=== PATIENT | male | born 1980 | race African-American/Black ===

== ENCOUNTER 2019-09-24 08:21 | Emergency (ER) | payer OTHER ==
[~2019-09-24] VITALS: Ht 170.2 cm; Wt 59.6 kg
--- NOTE | 2019-09-24 08:54 | PHYS DOC ---
Past Medical History Past Medical History: Hypertension, Unknown Past Surgical History: Other Additional Past Surgical Histo: surgical scars to chest, abd, left shoulder- refuses to give info regarding Smoking Status: Unknown if ever smoked Alcohol Use: Heavy Social History Narrative: unknown General Adult EDM: Chief Complaint: ALCOHOL INTOXICATION HPI: HPI: Patient is a 39 year old male who was [place] the bus station by EMS because he was sleeping there. Patient appeared to be intoxicated. Patient denies any chest pain, no headache, no neck pain, no abdominal pain, no nausea vomiting. Patient denies suicidal ideation. Patient said he wanted to BE LEFT alone and wanted food. Review of Systems: Review of Systems: Constitutional: Denies fever or chills. [] Eyes: Denies change in visual acuity. [] HENT: Denies nasal congestion or sore throat. [] Respiratory: Denies cough or shortness of breath. [] Cardiovascular: Denies chest pain or edema. [] GI: Denies abdominal pain, nausea, vomiting, bloody stools or diarrhea. [] : Denies dysuria. [] Musculoskeletal: Denies back pain or joint pain. [] Integument: Denies rash. [] Neurologic: Denies headache, focal weakness or sensory changes. [] Endocrine: Denies polyuria or polydipsia. [] Lymphatic: Denies swollen glands. [] Psychiatric: Denies depression or anxiety. [] Heart Score: Risk Factors: Risk Factors: DM, Current or recent (<one month) smoker, HTN, HLP, family history of CAD, obesity. Risk Scores: Score 0 - 3: 2.5% MACE over next 6 weeks - Discharge Home Score 4 - 6: 20.3% MACE over next 6 weeks - Admit for Clinical Observation Score 7 - 10: 72.7% MACE over next 6 weeks - Early Invasive Strategies Allergies: Allergies: Allergies Coded Allergies Type Severity Reaction Last Updated Verified No Known Drug Allergies 09/24/19 No Physical Exam: PE: Constitutional: Well developed, well nourished, no acute distress, non-toxic appearance. [] HENT: Normocephalic, atraumatic, bilateral external ears normal, oropharynx moist, no oral exudates, nose normal. NO EVIDENCE OF INJURY NOTED. Eyes: PERRLA, EOMI, conjunctiva normal, no discharge. [] Neck: Normal range of motion, no tenderness, supple, no stridor. [] Cardiovascular:Heart rate regular rhythm, no murmur [] Lungs & Thorax: Bilateral breath sounds clear to auscultation [] Abdomen: Bowel sounds normal, soft, no tenderness, no masses, no pulsatile masses. [] Skin: Warm, dry, no erythema, no rash. [] Back: No tenderness, no CVA tenderness. [] Extremities: No tenderness, no cyanosis, no clubbing, ROM intact, no edema. [] Neurologic: Alert, awake, confused, normal motor function, normal sensory function, no focal deficits noted. [] Psychologic: Affect normal, judgement normal, mood normal. DENIED SUICIDAL IDEATION, DENIED HOMICIDAL IDEATION. Current Patient Data: Vital Signs: Vital Signs Date Time Temp Pulse Resp B/P (MAP) Pulse Ox O2 Delivery O2 Flow Rate FiO2 09/24/19 08:21 97.4 100 20 143/102 (116) 98 Room Air 97.4 EKG: EKG: [] Radiology/Procedures: Radiology/Procedures: [] Course & Med Decision Making: Course & Med Decision Making Pertinent Labs and Imaging studies reviewed. (See chart for details) Patient did not want any lab work done. Blowtorch Disclaimer: Blowtorch Disclaimer: This electronic medical record was generated, in whole or in part, using a voice recognition dictation system. Departure Departure Impression: Primary Impression: Alcohol abuse Disposition: 01 HOME, SELF-CARE Condition: STABLE Patient Instructions: Alcohol Problems BO WINTERS DO Sep 24, 2019 08:53
[2019-09-24 11:55] VITALS: BP 104/59
== END 2019-09-24 12:35 | disposition home or self-care (01) ==
LOC: ER 08:21
DX: F10.229 Alcohol dependence with intoxication, unspecified (principal); Y90.9 Presence of alcohol in blood, level not specified; I10 Essential (primary) hypertension
CPT/HCPCS: 99285-25

== ENCOUNTER 2019-11-23 17:16 | Emergency (ER) | payer OTHER ==
[~2019-11-23] VITALS: Ht 170.2 cm; Wt 63.6 kg
[2019-11-23 18:43] LABS: BILIRUBIN,URINE NEGATIVE (NEG); CLARITY,URINE CLEAR; COLOR,URINE YELLOW; NITRITE,URINE NEGATIVE (NEG); PH,URINE 5.5 (<5.0-8.0); PROTEIN,URINE NEGATIVE (NEG-TRACE); UROBILINOGEN,URINE 0.2 mg/dL (0.2 mg/dL)
[2019-11-23] MEDS ORDERED: MULTIVIT INFUSN,ADULT 4,VIT K 10 ML, THIAMINE INJ 100 MG, FOLIC ACID INJ 1 MG in IV NOR... IV ONE (18:45)
[2019-11-23 18:48] LABS: BASO % 1 % (0-3); EOS # 0.1 x10^3/uL (0.0-0.7); EOS % 1 % (0-3); HEMATOCRIT 42.3 % (39.0-53.0); HEMOGLOBIN 14.7 g/dL (13.0-17.5); LYMPH # 1.3 x10^3/uL (1.0-4.8); LYMPH % 29 % (24-48); MEAN CORPUSCULAR HEMOGLOBIN 33 pg (25-35); MEAN CORPUSCULAR HGB CONC 35 g/dL (31-37); MEAN CORPUSCULAR VOLUME 95 fL (79-100); MONO # 0.3 x10^3/uL (0.0-1.1); MONO % 7 % (0-9); NEUT # 2.8 x10^3/uL (1.8-7.7); NEUT % 63 % (31-73); PLATELET COUNT 243 x10^3/uL (140-400); RED BLOOD COUNT 4.47 x10^6/uL (4.30-5.70); RED CELL DISTRIBUTION WIDTH 14.7 % (11.5-14.5); WHITE BLOOD COUNT 4.4 x10^3/uL (4.0-11.0)
[2019-11-23 18:49] LABS: BACTERIA,URINE 0 /HPF (0-FEW); RBC,URINE 0 /HPF (0-2); SQUAMOUS EPITHELIAL CELL,UR FEW /LPF; WBC,URINE 0 /HPF (0-4)
[2019-11-23 18:57] LABS: BARBITURATES NEG (NEG); BENZODIAZEPINES NEG (NEG); CANNABINOIDS NEG (NEG); COCAINE NEG (NEG); METHADONE NEG (NEG); OPIATES NEG (NEG); PHENCYCLIDINE POS (NEG)
[2019-11-23 18:58] LABS: PROTHROMBIN TIME PATIENT 12.2 SEC (11.7-14.0)
[2019-11-23 19:00] LABS: AMPHETAMINE/METHAMPHETAMINE NEG (NEG)
[2019-11-23 19:00] LABS: CALCIUM 8.4 mg/dL (8.5-10.1); CREATININE 0.7 mg/dL (0.7-1.3); GFR 151.1; POTASSIUM 3.6 mmol/L (3.5-5.1)
--- NOTE | 2019-11-23 19:00 | PHYS DOC ---
Past Medical History Past Medical History: Alcoholism, Hypertension, Unknown, Other Past Medical History Limited secondary to intoxication Past Surgical History: Other Additional Past Surgical Histo: surgical scars to chest, abd, left shoulder- refuses to give info regarding Past Surgical History Limited secondary to intoxication Smoking Status: Current Every Day Smoker Additional Information: 1+ PPD Alcohol Use: Heavy Additional Information: DRINKS DAILY, PATIENT STATES, "ANYTHING THAT THEY GIVE ME." Social History Narrative: PT STATES, "I AM JUST GOING TO LEAVE THAT ALONE." Social History Limited secondary to intoxication General Adult EDM: Chief Complaint: ALCOHOL INTOXICATION HPI: HPI: Patient is a 39 year old male presents via EMS with report of being found at gas station at [facility] and [facility] sitting on the curb intoxicated. Patient does report alcohol abuse. Patient denies any complaint. Reports reports drinks daily and drinks "anything they give me." Patient does report he would like help with his ETOH abuse. History of present illness limited secondary to intoxication. Review of Systems: Review of Systems: Review of systems limited secondary to intoxication Current Medications: Current Medications Medications (Trade) Dose Ordered Sig/Suly Start Time Stop Time Status Last Admin Dose Admin Multivitamins 10 ml/Thiamine HCl 100 mg/Folic Acid 1 mg/Sodium Chloride 1,011.2 ml @ 1,000 mls/ hr 1X ONCE 11/23/19 18:45 11/23/19 19:45 Allergies: Allergies: Allergies Coded Allergies Type Severity Reaction Last Updated Verified No Known Drug Allergies 09/24/19 No Physical Exam: PE: Constitutional: Well developed, well nourished, inebriated HENT: Normocephalic, atraumatic, right forehead soft mass noted (reports has had this swelling for years) Eyes: PERRL, EOMI, conjunctiva injected, no discharge, horizontal nystagmus noted Neck: Normal range of motion, no tenderness, supple Lungs & Thorax: No respiratory distress, equal chest rise and fall Abdomen: Soft, no tenderness Skin: Warm, dry, no erythema, no rash Extremities: No tenderness, ROM intact, no edema Neurologic: Alert but inebriated, follows commands, normal motor function, normal sensory function, no focal deficits noted Psychologic: Affect somnolent, judgment abnormal, reports wanting help with his ETOH abuse, denies suicidality Current Patient Data: Labs: Laboratory Tests Test 11/23/19 18:35 11/23/19 18:42 Urine Collection Type Unknown Urine Color Yellow Urine Clarity Clear Urine pH 5.5 (<5.0-8.0) Urine Specific [place] <=1.005 (1.000-1.030) Urine Protein Negative mg/dL (NEG-TRACE) Urine Glucose (UA) Negative mg/dL (NEG) Urine Ketones (Stick) Negative mg/dL (NEG) Urine Blood Negative (NEG) Urine Nitrite Negative (NEG) Urine Bilirubin Negative (NEG) Urine Urobilinogen Dipstick 0.2 mg/dL (0.2 mg/dL) Urine Leukocyte Esterase Negative (NEG) Urine RBC 0 /HPF (0-2) Urine WBC 0 /HPF (0-4) Urine Squamous Epithelial Cells Few /LPF Urine Bacteria 0 /HPF (0-FEW) White Blood Count 4.4 x10^3/uL (4.0-11.0) Red Blood Count 4.47 x10^6/uL (4.30-5.70) Hemoglobin 14.7 g/dL (13.0-17.5) Hematocrit 42.3 % (39.0-53.0) Mean Corpuscular Volume 95 fL (79-100) Mean Corpuscular Hemoglobin 33 pg (25-35) Mean Corpuscular Hemoglobin Concent 35 g/dL (31-37) Red Cell Distribution Width 14.7 % (11.5-14.5) H Platelet Count 243 x10^3/uL (140-400) Neutrophils (%) (Auto) 63 % (31-73) Lymphocytes (%) (Auto) 29 % (24-48) Monocytes (%) (Auto) 7 % (0-9) Eosinophils (%) (Auto) 1 % (0-3) Basophils (%) (Auto) 1 % (0-3) Neutrophils # (Auto) 2.8 x10^3/uL (1.8-7.7) Lymphocytes # (Auto) 1.3 x10^3/uL (1.0-4.8) Monocytes # (Auto) 0.3 x10^3/uL (0.0-1.1) Eosinophils # (Auto) 0.1 x10^3/uL (0.0-0.7) Basophils # (Auto) 0.0 x10^3/uL (0.0-0.2) Laboratory Tests 11/23/19 18:42 Vital Signs: Vital Signs Date Time Temp Pulse Resp B/P (MAP) Pulse Ox O2 Delivery O2 Flow Rate FiO2 11/23/19 17:16 98.4 102 20 113/68 (83) 96 Room Air 98.4 EKG: EKG: [] Radiology/Procedures: Radiology/Procedures: [] Course & Med Decision Making: Course & Med Decision Making Pertinent Lab studies reviewed. (See chart for details) Patient presents via EMS with acute intoxication. Patient reports he drinks daily. Patient inebriated upon arrival. Patient also very somnolent and sleepy. Patient does follow commands. Patient does report wish for help with alcohol abuse. Denies suicidality. Labs obtained and posted to chart. UDS positive for ETOH and PCP. ETOH 365. Banana bag provided. Patient allowed to sober in department. PAT consult placed. Arianna (BANDAR) evaluated patient with recommendation who offered sobering unit and further assessment at [place]. Patient reports he has a job on the weekend and wants to fulfill his obligation tomorrow and Tuesday. Reports he will follow up at [facility] on Tuesday. Patent given mental health/detox information from Arianna. Patient stable for discharge with outpatient follow-up with PCP/mental health/detox. Discussed findings and plan with patient, who acknowledges understanding and agreement. David Disclaimer: David Disclaimer: This electronic medical record was generated, in whole or in part, using a voice recognition dictation system. Departure Departure Impression: Primary Impression: Alcohol abuse Additional Impression: PCP (phencyclidine) abuse Disposition: 01 HOME, SELF-CARE Condition: STABLE Patient Instructions: Alcohol and Drug Addiction, Finding Treatment, Chronic Alcoholism, How Much is Too Much Alcohol, [id number] Justicifation of Admission Dx: Justifications for Admission: Justification of Admission Dx: N/A JESSE SCHMITT DO Nov 23, 2019 19:00
[2019-11-23 19:05] LABS: ALBUMIN 4.2 g/dL (3.4-5.0); ALBUMIN/GLOBULIN RATIO 1.1 (1.0-1.7); MAGNESIUM 2.4 mg/dL (1.8-2.4); TOTAL BILIRUBIN 0.2 mg/dL (0.2-1.0); TOTAL PROTEIN 8.1 g/dL (6.4-8.2)
[2019-11-23 19:18] LABS: SALIC 4.6 mg/dL (2.8-20.0)
[2019-11-23 19:19] LABS: ACETAMIN < 2 mcg/ml (10-30); ETHANOL 365 mg/dL (0-10)
[2019-11-23 19:48] VITALS: BP 131/70
== END 2019-11-23 20:16 | disposition home or self-care (01) ==
LOC: ER 17:16
DX: F10.229 Alcohol dependence with intoxication, unspecified (principal); F10.239 Alcohol dependence with withdrawal, unspecified; F16.10 Hallucinogen abuse, uncomplicated; Y90.8 Blood alcohol level of 240 mg/100 ml or more; I10 Essential (primary) hypertension; F17.200 Nicotine dependence, unspecified, uncomplicated; Z98.890 Other specified postprocedural states
CPT/HCPCS: 36415; 80053; 80307; 80329; 81001; 83735; 85025; 85610; 85730; 96365; 99284; G0480; J3411; J3490; J7030

== ENCOUNTER 2020-02-20 19:09 | Emergency (ER) | payer OTHER ==
[~2020-02-20] VITALS: Ht 172.7 cm; Wt 72.0 kg
[2020-02-20] MEDS ORDERED: TETANUS AND DIPHTHERIA TOX/PF 0.5 ML DISP.SYRIN. VAX IM ONE (19:15)
[2020-02-20] MEDS ORDERED: LIDOCAINE 1%/EPI 1:100,000 20 ML VIAL. INJ ONE (19:15)
--- NOTE | 2020-02-20 19:18 | PHYS DOC ---
Past Medical History Past Medical History: Alcoholism, Hypertension, Unknown, Other Past Surgical History: Other Additional Past Surgical Histo: surgical scars to chest, abd, left shoulder- refuses to give info regarding Smoking Status: Current Every Day Smoker Alcohol Use: Heavy General Adult EDM: Chief Complaint: ALCOHOL INTOXICATION HPI: HPI: Patient is a 40 year old found intoxicated on the ground. History physical review of systems limited due to alcohol intoxication patient states he got drunk and fell and injured his head today. Patient unable to qualify the severity of pain or any other details surrounding the event. Review of Systems: Review of Systems: Constitutional: Denies fever or chills. [] Eyes: Denies change in visual acuity. [] HENT: Denies nasal congestion or sore throat. [] Respiratory: Denies cough or shortness of breath. [] Cardiovascular: Denies chest pain or edema. [] GI: Denies abdominal pain, nausea, vomiting, bloody stools or diarrhea. [] : Denies dysuria. [] Musculoskeletal: Denies back pain or joint pain. [] Integument: Denies rash. [] Neurologic: Complains of headache but no focal weakness or sensory changes. [] Endocrine: Denies polyuria or polydipsia. [] Lymphatic: Denies swollen glands. [] Psychiatric: Denies depression or anxiety. [] Heart Score: Risk Factors: Risk Factors: DM, Current or recent (<one month) smoker, HTN, HLP, family history of CAD, obesity. Risk Scores: Score 0 - 3: 2.5% MACE over next 6 weeks - Discharge Home Score 4 - 6: 20.3% MACE over next 6 weeks - Admit for Clinical Observation Score 7 - 10: 72.7% MACE over next 6 weeks - Early Invasive Strategies Allergies: Allergies: Allergies Coded Allergies Type Severity Reaction Last Updated Verified No Known Drug Allergies 09/24/19 No Physical Exam: PE: Constitutional: Disheveled, intoxicated HENT: Multiple scattered abrasions, no malocclusion no obvious oral trauma there is a 1.5 cm laceration to the right eyebrow laterally, tympanic membrane is clear, no septal hematoma, scattered contusions Eyes: PERRLA, EOMI, 1.5 cm laceration to the right lateral eyebrow Neck: Normal range of motion, no tenderness, supple, no stridor. [] Cardiovascular:Heart rate regular rhythm, peripheral pulse intact, cap refill brisk Lungs & Thorax: Bilateral breath sounds clear no respiratory distress Abdomen: Abdomen soft nontender Skin: 1.5 cm laceration to the right lateral eyebrow Back: No tenderness, no CVA tenderness. [] Extremities: No tenderness, no cyanosis, no clubbing, ROM intact, no edema. [] Neurologic: Intoxicated mildly confused, normal motor function, normal sensory function, no focal deficits noted. [] Psychologic: Not depressed Current Patient Data: Vital Signs: Vital Signs Date Time Temp Pulse Resp B/P (MAP) Pulse Ox O2 Delivery O2 Flow Rate FiO2 02/20/20 19:14 99.4 107 16 139/71 (93) 97 Room Air 99.4 EKG: EKG: [] Radiology/Procedures: Radiology/Procedures: [][facility] [address] [place] [address] IMAGING REPORT Signed PATIENT: CHARLIE MCCOLLUM ACCOUNT: [id number] : 1980 LOCATION: ER AGE: 40 SEX: M EXAM STATUS: REG ER ORD. PHYSICIAN: MIHIR SANTANA MD REASON: TRAUMA PROCEDURE: CT HEAD AND MAXILLOFACIAL WO CT CERVICAL SPINE WO CONTRAST, CT HEAD AND MAXILLOFACIAL WO History: Reason: TRAUMA / Spl. Instructions: / History: . Pain Comparison: None. Technique: Noncontrast CT imaging was performed of the head, maxillofacial and cervical spine. Coronal and sagittal reconstructions were performed. Exposure: One or more of the following individualized dose reduction techniques were utilized for this examination: 1. Automated exposure control 2. Adjustment of the mA and/or kV according to patient size 3. Use of iterative reconstruction technique. Findings: Head CT: No intracranial hemorrhage. No mass effect. No hydrocephalus. Extra-axial spaces are unremarkable. Right anterior scalp lipoma. Mild left anterior scalp soft tissue swelling. Maxillofacial CT: No acute maxillofacial fracture. Left facial soft tissue swelling. Orbits are unremarkable. Paranasal sinuses and mastoid air cells are clear. No acute calvarial fracture. Cervical spine CT: Normal vertebral body height. Normal alignment. No fracture. Mild multilevel degenerative disc changes. No high-grade canal or neuroforaminal narrowing. Soft tissues are unremarkable. Impression: Head CT: 1. No acute intracranial abnormality. 2. Mild left anterior scalp soft tissue swelling. Maxillofacial CT: 1. No acute maxillofacial fracture. 2. Mild left facial soft tissue swelling. Cervical spine CT: 1. No acute fracture or subluxation of the cervical spine. Electronically signed by: Jeremy Santillan DO (02/20/2020 9:18 PM) [facility] DICTATED and SIGNED BY: JEREMY SANTILLAN DO DATE: 02/20/202117 Course & Med Decision Making: Course & Med Decision Making Pertinent Labs and Imaging studies reviewed. (See chart for details) [] 40-year-old male presents with alcohol intoxication and a fall and head injury. Due to his alcohol intoxication a CT was done of the head neck and face which are negative for acute pathology. Laceration repaired by nurse practitioner. No complications. Patient has a ride back to where he is staying. Patient eating and no respiratory distress in ER. Dragon Disclaimer: Dragon Disclaimer: This electronic medical record was generated, in whole or in part, using a voice recognition dictation system. Departure Departure Impression: Primary Impression: Facial laceration Additional Impressions: Head injury Alcohol intoxication Disposition: 01 HOME, SELF-CARE Condition: STABLE Referrals: NO PCP (PCP) PCP Patient Instructions: Alcohol Intoxication, Facial Laceration, Head Injury, Adult Additional Instructions: EMERGENCY DEPARTMENT GENERAL DISCHARGE INSTRUCTIONS THANK YOU for coming to [facility] Emergency Department (ED) today and trusting us with your care. We trust that you had a positive experience in our Emergency Department. If you wish to speak to the department Management you can contact [facility] supervisor sewing department at . YOUR FOLLOW UP INSTRUCTIONS ARE FOLLOWS: Do you have a private doctor? If you do not have a private doctor, please ask for a resource list of physicians or clinics that may be able to assist you with follow up care. The Emergency Physician has interpreted your x-rays. The X-ray specialist will also review them. If there is a change in the findings you will be notified in 48 hours when at all possible. A lab test or lab culture may have been done, your results will be reviewed and you will be notified if you need a change in treatment. ADDITIONAL INSTRUCTIONS AND INFORMATION Your care today has been supervised by a physician who is specially trained in emergency care. Many problems require more than one evaluation for a complete diagnosis and treatment. We recommend that you schedule your follow up appointment as recommended to ensure complete treatment of your illness or injury. If you are unable to obtain follow up care and continue to have a problem, or if your condition worsens we recommend that you return to the ED. We are not able to safely determine your condition over the phone nor are we able to give sound medical advice over the phone. For these safety reasons, if you call for medical advice we will ask you to come to the ED for further evaluation If you have any questions regarding these discharge instructions please call the ED at . SAFETY INFORMATION In the interest of safety, wellness, and injury prevention; we encourage you to wear your seatbelt, if you smoke; quit smoking, and we encourage your family to use protective helmet for bicycling and other sporting events that present an increased risk for head injury. IF YOUR SYMPTOMS WORSEN OR NEW SYMPTOMS DEVELOP, OR YOU HAVE CONCERNS ABOUT YOUR CONDITION; OR IF YOUR CONDITION WORSENS WHILE YOU ARE WAITING FOR YOUR FOLLOW UP APPOINT MENT; EITHER CONTACT YOUR PRIMARY CARE DOCTOR, THE PHYSICIAN WHOSE NAME AND NUMBER YOU WERE GIVEN, OR RETURN TO THE ED IMMEDIATELY. Justicifation of Admission Dx: Justifications for Admission: Justification of Admission Dx: N/A MIHIR SANTANA MD Feb 20, 2020 19:18
[2020-02-20 20:50] VITALS: BP 119/72
--- NOTE | 2020-02-20 21:21 | RAD ---
CT CERVICAL SPINE WO CONTRAST, CT HEAD AND MAXILLOFACIAL WO History: Reason: TRAUMA / Spl. Instructions: / History: . Pain Comparison: None. Technique: Noncontrast CT imaging was performed of the head, maxillofacial and cervical spine. Coronal and sagittal reconstructions were performed. Exposure: One or more of the following individualized dose reduction techniques were utilized for this examination: 1. Automated exposure control 2. Adjustment of the mA and/or kV according to patient size 3. Use of iterative reconstruction technique. Findings: Head CT: No intracranial hemorrhage. No mass effect. No hydrocephalus. Extra-axial spaces are unremarkable. Right anterior scalp lipoma. Mild left anterior scalp soft tissue swelling. Maxillofacial CT: No acute maxillofacial fracture. Left facial soft tissue swelling. Orbits are unremarkable. Paranasal sinuses and mastoid air cells are clear. No acute calvarial fracture. Cervical spine CT: Normal vertebral body height. Normal alignment. No fracture. Mild multilevel degenerative disc changes. No high-grade canal or neuroforaminal narrowing. Soft tissues are unremarkable. Impression: Head CT: 1. No acute intracranial abnormality. 2. Mild left anterior scalp soft tissue swelling. Maxillofacial CT: 1. No acute maxillofacial fracture. 2. Mild left facial soft tissue swelling. Cervical spine CT: 1. No acute fracture or subluxation of the cervical spine. Electronically signed by: Oscar Arevalo DO (02/20/2020 9:18 PM) [facility]
== END 2020-02-20 21:32 | disposition home or self-care (01) ==
LOC: ER 19:09
DX: S01.111A Laceration without foreign body of right eyelid and periocular area, initial encounter (principal); F10.229 Alcohol dependence with intoxication, unspecified; R51 Headache; I10 Essential (primary) hypertension; F17.200 Nicotine dependence, unspecified, uncomplicated; Z98.890 Other specified postprocedural states; W18.39XA Other fall on same level, initial encounter; Y93.89 Activity, other specified; Y92.89 Other specified places as the place of occurrence of the external cause; Y99.8 Other external cause status
CPT/HCPCS: 12011; 70450; 70486; 72125; 90471; 90714; 99285; J3490

== ENCOUNTER 2020-05-27 14:18 | Emergency (ER) | payer OTHER ==
[~2020-05-27] VITALS: Ht 175.3 cm; Wt 65.9 kg
[2020-05-27 14:33] VITALS: BP 159/78
--- NOTE | 2020-05-27 14:38 | ED.ADGEN ---
Past Medical History Past Medical History: Unknown Past Surgical History: Other Additional Past Surgical Histo: pt has multiple surgical scars, does not remember what surgeries Smoking Status: Current Every Day Smoker Alcohol Use: Heavy General Adult EDM: Chief Complaint: PSYCH EVALUATION HPI: HPI: Patient is a 40 year old male brought in by EMS. Per EMS report he said family had called because he been having increased hallucinations and acting erratically. Patient states he feels fine. When not elaborate on what the voices are telling him, but states he is not suicidal homicidal. Denies any visual hallucinations. Patient states he drank 3 large beers today, denies drug use. Has a history of daily alcohol use. Patient states he has had multiple inpatient psychiatric stays, but has been year since his last 1. States he is taking Zyprexa at night and has been compliant. Was able to contact sister who says he has been seeing her for the past week but she is unable to keep them there. She states that history of paranoid schizophrenia and denies any suicidal homicidal ideations recently but says in the past he has "clicked" she says that he has been coughing and refusing to wear a mask. Review of Systems: Review of Systems: Constitutional: Denies fever or chills. [] Eyes: Denies change in visual acuity. [] HENT: Denies nasal congestion or sore throat. [] Respiratory: Denies cough or shortness of breath. [] Cardiovascular: Denies chest pain or edema. [] GI: Denies abdominal pain, nausea, vomiting, bloody stools or diarrhea. [] : Denies dysuria. [] Musculoskeletal: Denies back pain or joint pain. [] Integument: Denies rash. [] Neurologic: Denies headache, focal weakness or sensory changes. [] Endocrine: Denies polyuria or polydipsia. [] Lymphatic: Denies swollen glands. [] Psychiatric: Denies depression or anxiety. [] Allergies: Allergies: Allergies Coded Allergies Type Severity Reaction Last Updated Verified No Known Drug Allergies 09/24/19 No Physical Exam: PE: Constitutional: Well developed, well nourished, no acute distress, non-toxic appearance. [] HENT: Normocephalic, atraumatic, bilateral external ears normal, oropharynx moist, no oral exudates, nose normal. [] Eyes: PERRLA, EOMI, conjunctiva normal, no discharge. [] Neck: Normal range of motion, no tenderness, supple, no stridor. [] Cardiovascular:Heart rate regular rhythm, no murmur [] Lungs & Thorax: Bilateral breath sounds clear to auscultation [] Abdomen: Bowel sounds normal, soft, no tenderness, no masses, no pulsatile masses. [] Skin: Warm, dry, no erythema, no rash. [] Back: No tenderness, no CVA tenderness. [] Extremities: No tenderness, no cyanosis, no clubbing, ROM intact, no edema. [] Neurologic: Alert and oriented X 3, normal motor function, normal sensory function, no focal deficits noted. [] Psychologic: Affect normal, judgement normal, mood normal. [] Current Patient Data: Labs: Laboratory Tests Test 05/27/20 14:50 White Blood Count 10.1 x10^3/uL (4.0-11.0) Red Blood Count 4.48 x10^6/uL (4.30-5.70) Hemoglobin 14.7 g/dL (13.0-17.5) Hematocrit 42.2 % (39.0-53.0) Mean Corpuscular Volume 94 fL (79-100) Mean Corpuscular Hemoglobin 33 pg (25-35) Mean Corpuscular Hemoglobin Concent 35 g/dL (31-37) Red Cell Distribution Width 14.9 % (11.5-14.5) H Platelet Count 398 x10^3/uL (140-400) Neutrophils (%) (Auto) 77 % (31-73) H Lymphocytes (%) (Auto) 14 % (24-48) L Monocytes (%) (Auto) 8 % (0-9) Eosinophils (%) (Auto) 1 % (0-3) Basophils (%) (Auto) 1 % (0-3) Neutrophils # (Auto) 7.7 x10^3/uL (1.8-7.7) Lymphocytes # (Auto) 1.4 x10^3/uL (1.0-4.8) Monocytes # (Auto) 0.8 x10^3/uL (0.0-1.1) Eosinophils # (Auto) 0.1 x10^3/uL (0.0-0.7) Basophils # (Auto) 0.1 x10^3/uL (0.0-0.2) Prothrombin Time 12.4 SEC (11.7-14.0) Prothrombin Time INR 1.0 (0.8-1.1) Sodium Level 135 mmol/L (136-145) L Potassium Level 3.8 mmol/L (3.5-5.1) Chloride Level 95 mmol/L (98-107) L Carbon Dioxide Level 28 mmol/L (21-32) Anion Gap 12 (6-14) Blood Urea Nitrogen 5 mg/dL (8-26) L Creatinine 0.4 mg/dL (0.7-1.3) L Estimated GFR (Cockcroft-Gault) 286.8 BUN/Creatinine Ratio 13 (6-20) Glucose Level 73 mg/dL (70-99) Calcium Level 9.1 mg/dL (8.5-10.1) Total Bilirubin 0.2 mg/dL (0.2-1.0) Aspartate Amino Transferase (AST) 33 U/L (15-37) Alanine Aminotransferase (ALT) 44 U/L (16-63) Alkaline Phosphatase 127 U/L (46-116) H Ammonia 18 mcmol/L (11-34) Total Protein 9.2 g/dL (6.4-8.2) H Albumin 4.0 g/dL (3.4-5.0) Albumin/Globulin Ratio 0.8 (1.0-1.7) L Ethyl Alcohol Level 292 mg/dL (0-10) H Laboratory Tests 05/27/20 14:50 Laboratory Tests 05/27/20 14:50 Vital Signs: Vital Signs Date Time Temp Pulse Resp B/P (MAP) Pulse Ox O2 Delivery O2 Flow Rate FiO2 05/27/20 14:33 99.0 103 159/78 (105) 98 99.0 EKG: EKG: [] Heart Score: Risk Factors: Risk Factors: DM, Current or recent (<one month) smoker, HTN, HLP, family history of CAD, obesity. Risk Scores: Score 0 - 3: 2.5% MACE over next 6 weeks - Discharge Home Score 4 - 6: 20.3% MACE over next 6 weeks - Admit for Clinical Observation Score 7 - 10: 72.7% MACE over next 6 weeks - Early Invasive Strategies Radiology/Procedures: Radiology/Procedures: AP chest. HISTORY: Cough AP view was taken of the chest. There is no prior study for comparison. There are sternal wire suture. Heart is within normal limits in size. There is mild pleural thickening and scarring on the right. There is a calcified granuloma in the right upper lobe. There is an old distal clavicle fracture on the left. IMPRESSION: 1. Mild pleural thickening on the right. 2. Mild scarring on the right. 3. No acute infiltrates. [] Course & Med Decision Making: Course & Med Decision Making Pertinent Labs and Imaging studies reviewed. (See chart for details) Consulted PAT team who interviewed the patient. Patient states to be willing to go to [facility] for alcohol detox after medically cleared. Patient transported to rehab via taxi. [] Dragon Disclaimer: Dragon Disclaimer: This electronic medical record was generated, in whole or in part, using a voice recognition dictation system. Departure Departure Impression: Primary Impression: Alcohol abuse Additional Impression: Paranoid schizophrenia Disposition: 01 DC HOME SELF CARE/HOMELESS Condition: STABLE Referrals: NO PCP (PCP) Patient Instructions: Alcohol Problems Problem Qualifiers URMILA XIONG MD May 27, 2020 14:38
[2020-05-27 15:14] LABS: BASO # 0.1 x10^3/uL (0.0-0.2); BASO % 1 % (0-3); EOS # 0.1 x10^3/uL (0.0-0.7); EOS % 1 % (0-3); HEMATOCRIT 42.2 % (39.0-53.0); HEMOGLOBIN 14.7 g/dL (13.0-17.5); LYMPH # 1.4 x10^3/uL (1.0-4.8); LYMPH % 14 % (24-48); MEAN CORPUSCULAR HEMOGLOBIN 33 pg (25-35); MEAN CORPUSCULAR HGB CONC 35 g/dL (31-37); MEAN CORPUSCULAR VOLUME 94 fL (79-100); MONO # 0.8 x10^3/uL (0.0-1.1); MONO % 8 % (0-9); NEUT # 7.7 x10^3/uL (1.8-7.7); NEUT % 77 % (31-73); PLATELET COUNT 398 x10^3/uL (140-400); RED BLOOD COUNT 4.48 x10^6/uL (4.30-5.70); RED CELL DISTRIBUTION WIDTH 14.9 % (11.5-14.5); WHITE BLOOD COUNT 10.1 x10^3/uL (4.0-11.0)
[2020-05-27 15:27] LABS: CALCIUM 9.1 mg/dL (8.5-10.1); CREATININE 0.4 mg/dL (0.7-1.3); GFR 286.8; POTASSIUM 3.8 mmol/L (3.5-5.1)
--- NOTE | 2020-05-27 15:28 | RAD ---
AP chest. HISTORY: Cough AP view was taken of the chest. There is no prior study for comparison. There are sternal wire suture . Heart is within normal limits in size. There is mild pleural thickening and scarring on the right. There is a calcified granuloma in the right upper lobe. There is an old distal clavicle fracture on t he left. IMPRESSION: 1. Mild pleural thickening on the right. 2. Mild scarring on the right. 3. No acute infiltrates. Electronically signed by: Sal Ngero MD (05/27/2020 3:25 PM) [facility]
[2020-05-27 15:32] LABS: ALBUMIN/GLOBULIN RATIO 0.8 (1.0-1.7); TOTAL BILIRUBIN 0.2 mg/dL (0.2-1.0); TOTAL PROTEIN 9.2 g/dL (6.4-8.2)
[2020-05-27 15:44] LABS: PROTHROMBIN TIME PATIENT 12.4 SEC (11.7-14.0)
[2020-05-28] MEDS ORDERED: CHLO25CA9 PO (01:34)
== END 2020-05-27 18:23 | disposition home or self-care (01) ==
LOC: ER 14:18
DX: F20.0 Paranoid schizophrenia (principal); F10.20 Alcohol dependence, uncomplicated; Y90.8 Blood alcohol level of 240 mg/100 ml or more; Z20.828 Contact with and (suspected) exposure to other viral communicable diseases; F17.200 Nicotine dependence, unspecified, uncomplicated
CPT/HCPCS: 36415; 71045; 80053; 82140; 85025; 85610; 87426; 99284; C9803; G0480; U0003

== ENCOUNTER 2020-05-27 23:42 | Emergency (ER) | payer OTHER ==
[~2020-05-27] VITALS: Ht 167.6 cm; Wt 63.6 kg
--- NOTE | 2020-05-28 00:07 | ED.ADGEN ---
Past Medical History Past Medical History: Unknown Additional Past Medical Histor: ETOH ABUSE,PARANOID SCHIZOPHRENIA Past Surgical History: Other Additional Past Surgical Histo: pt has multiple surgical scars, does not remember what surgeries Smoking Status: Current Every Day Smoker Alcohol Use: Heavy General Adult EDM: Chief Complaint: MEDICAL CLEARANCE HPI: HPI: Patient is a 40 year old AA male brought to the emergency department by EMS from [facility] for medical clearance. Patient was seen in this ER earlier today and had medical clearance for alcohol detox. EMS reports that tonight the patient began to have a fever and rapid heart rate so he was sent back for medical clearance again. Patient denies any sore throat, body aches, nausea, vomiting, diarrhea, abdominal pain, rash, or shortness of breath. He states that he does have a dry cough but states this is his normal chronic cough. Patient denies any headache, numbness, tingling, or weakness. He denies any chest pain or palpitations. Patient's only other complaint is that he has a runny nose. He currently denies any pain. Per EMS the patient was not given anything for fever prior to arrival. Review of Systems: Review of Systems: Complete ROS is negative unless otherwise noted in HPI. Current Medications: Current Medications Medications (Trade) Dose Ordered Sig/Suly Start Time Stop Time Status Last Admin Dose Admin Acetaminophen (Tylenol) 1,000 mg 1X ONCE 05/28/20 00:30 05/28/20 00:31 DC 05/28/20 00:19 1,000 MG Chlordiazepoxide (Librium) 50 mg 1X ONCE 05/28/20 01:30 05/28/20 01:31 DC 05/28/20 01:04 50 MG Allergies: Allergies: Allergies Coded Allergies Type Severity Reaction Last Updated Verified No Known Drug Allergies 09/24/19 No Physical Exam: PE: See Above Constitutional: Well developed, well nourished, no acute distress, non-toxic appearance. [] HENT: Normocephalic, atraumatic, bilateral external ears normal, bilateral TMs normal, nose normal Eyes: PERRLA, EOMI, conjunctiva normal, no discharge. [] Neck: Normal range of motion, no stridor. [] Cardiovascular:Heart rate regular rhythm Lungs & Thorax: Respirations even and unlabored, no retractions, no respiratory distress Skin: Flushed, hot, dry, no rash Extremities: No cyanosis, ROM intact, no edema. [] Neurologic: Alert and oriented X 3, no focal deficits noted. [] Psychologic: Affect normal, judgement normal, mood normal. [] Current Patient Data: Labs: Laboratory Tests Test 05/27/20 23:50 05/28/20 00:04 05/28/20 01:10 Influenza Type A Antigen Negative (NEGATIVE) Influenza Type B Antigen Negative (NEGATIVE) SARS-CoV-2 Antigen (Rapid) Negative (NEGATIVE) Urine Collection Type Unknown Urine Color Yellow Urine Clarity Clear Urine pH 7.5 (<5.0-8.0) Urine Specific [place] <=1.005 (1.000-1.030) Urine Protein Negative mg/dL (NEG-TRACE) Urine Glucose (UA) Negative mg/dL (NEG) Urine Ketones (Stick) Negative mg/dL (NEG) Urine Blood Negative (NEG) Urine Nitrite Negative (NEG) Urine Bilirubin Negative (NEG) Urine Urobilinogen Dipstick 0.2 mg/dL (0.2 mg/dL) Urine Leukocyte Esterase Negative (NEG) Urine RBC Occ /HPF (0-2) Urine WBC 1-4 /HPF (0-4) Urine Squamous Epithelial Cells Few /LPF Urine Bacteria 0 /HPF (0-FEW) Urine Opiates Screen Neg (NEG) Urine Methadone Screen Neg (NEG) Urine Barbiturates Neg (NEG) Urine Phencyclidine Screen Neg (NEG) Urine Amphetamine/Methamphetamine Neg (NEG) Urine Benzodiazepines Screen Neg (NEG) Urine Cocaine Screen Neg (NEG) Urine Cannabinoids Screen Neg (NEG) Urine Ethyl Alcohol Neg (NEG) Vital Signs: Vital Signs Date Time Temp Pulse Resp B/P (MAP) Pulse Ox O2 Delivery O2 Flow Rate FiO2 05/28/20 01:15 99 140/106 (117) 100 Room Air 05/28/20 00:45 98.7 98.7 05/27/20 23:45 20 EKG: EKG: [] Heart Score: Risk Factors: Risk Factors: DM, Current or recent (<one month) smoker, HTN, HLP, family history of CAD, obesity. Risk Scores: Score 0 - 3: 2.5% MACE over next 6 weeks - Discharge Home Score 4 - 6: 20.3% MACE over next 6 weeks - Admit for Clinical Observation Score 7 - 10: 72.7% MACE over next 6 weeks - Early Invasive Strategies Radiology/Procedures: Radiology/Procedures: [][facility] [address] [place] [address] IMAGING REPORT Signed PATIENT: CHARLIE MCCOLLUM ACCOUNT: [id number] : 1980 LOCATION: ER AGE: 40 SEX: M EXAM STATUS: REG ER ORD. PHYSICIAN: BO WINTERS DO REASON: cough, fever PROCEDURE: CHEST AP ONLY Single view chest dated 1220 08/06/2019. Comparison made to 05/27/2020. Clinical data indication: Cough. Fever. FINDINGS: Single upright portable exam performed. Heart size is upper limits of normal. The patient is status post median sternotomy. Lungs are hypoinflated but otherwise clear. No consolidation or pleural effusion. There is blunting of the right costophrenic sulcus, unchanged. IMPRESSION: No acute radiographic abnormality. Stable findings compared to 05/27/2020. Electronically signed by: Glenroy Sanchez MD (05/28/2020 12:54 AM) [facility] [place]CTATED and SIGNED BY: GLENROY SANCHEZ MD DATE: 05/28/20 [id number] 0 Course & Med Decision Making: Course & Med Decision Making Pertinent Labs and Imaging studies reviewed. (See chart for details) 40-year-old male who was seen here earlier today for medical clearance for alcohol detox presents for evaluation of fever and tachycardia. Patient's temperature was 100.9 on arrival. We will order a rapid flu, repeat the rapid Covid, and test patient's urine as the urinalysis was not complete during the previous visit. Patient is given 1 g of Tylenol and PO fluids Patient has history of alcohol withdrawal seizure, he will be discharged from the ER, a taxicab will take him to [facility] for alcohol detox. Patient was given a prescription for Librium. David Disclaimer: David Disclaimer: This electronic medical record was generated, in whole or in part, using a voice recognition dictation system. Departure Departure Impression: Primary Impression: Alcohol abuse Additional Impression: Fever Disposition: 01 DC HOME SELF CARE/HOMELESS Condition: IMPROVED Referrals: NO PCP (PCP) Patient Instructions: Alcohol Problems, Fever Scripts Chlordiazepoxide Hcl (CHLORDIAZEPOXIDE HCL) 25 Mg Capsule 25 MG PO QID PRN for ANXIETY / AGITATION for 7 Days, #28 CAP Prov: BO WINTERS DO 05/28/20 Problem Qualifiers KAT BURNS APRN May 28, 2020 00:07 BO WINTERS DO May 28, 2020 01:02
[2020-05-28 00:21] LABS: INFLUENZA A PATIENT NEGATIVE (NEGATIVE); INFLUENZA B PATIENT NEGATIVE (NEGATIVE)
[2020-05-28] MEDS ORDERED: ACETAMINOPHEN 500 MG TABLET PO ONE (00:30)
--- NOTE | 2020-05-28 00:56 | RAD ---
Single view chest dated 1220 08/06/2019. Comparison made to 05/27/2020. Clinical data indication: Cough. Fever. FINDINGS: Single upright portable exam performed. Heart size is upper limits of normal. The patient is status p ost median sternotomy. Lungs are hypoinflated but otherwise clear. No consolidation or pleural effusi on. There is blunting of the right costophrenic sulcus, unchanged. IMPRESSION: No acute radiographic abnormality. Stable findings compared to 05/27/2020. Electronically signed by: Glenroy Sanchez MD (05/28/2020 12:54 AM) [facility]
[2020-05-28 01:15] VITALS: BP 140/106
[2020-05-28 01:21] LABS: BILIRUBIN,URINE NEGATIVE (NEG); CLARITY,URINE CLEAR; COLOR,URINE YELLOW; NITRITE,URINE NEGATIVE (NEG); PH,URINE 7.5 (<5.0-8.0); PROTEIN,URINE NEGATIVE (NEG-TRACE); UROBILINOGEN,URINE 0.2 mg/dL (0.2 mg/dL)
[2020-05-28 01:27] LABS: BARBITURATES NEG (NEG); BENZODIAZEPINES NEG (NEG); CANNABINOIDS NEG (NEG); COCAINE NEG (NEG); METHADONE NEG (NEG); OPIATES NEG (NEG); PHENCYCLIDINE NEG (NEG)
[2020-05-28 01:30] LABS: AMPHETAMINE/METHAMPHETAMINE NEG (NEG)
[2020-05-28] MEDS ORDERED: chlordiazePOXIDE HCL 25 MG CAPSULE PO ONE (01:30)
[2020-05-28 01:32] LABS: BACTERIA,URINE 0 /HPF (0-FEW); RBC,URINE OCC /HPF (0-2)
[2020-05-28] MEDS ORDERED: CHLO25CA9 PO (01:34)
== END 2020-05-28 01:47 | disposition home or self-care (01) ==
LOC: ER 23:42
DX: R50.9 Fever, unspecified (principal); R00.0 Tachycardia, unspecified; F10.20 Alcohol dependence, uncomplicated; Y90.9 Presence of alcohol in blood, level not specified; F20.0 Paranoid schizophrenia; F17.200 Nicotine dependence, unspecified, uncomplicated
CPT/HCPCS: 71045; 80307; 81001; 87426; 87804; 99284

== ENCOUNTER 2020-06-09 23:58 | Emergency (ER) | payer OTHER ==
[~2020-06-09] VITALS: Ht 167.6 cm; Wt 66.0 kg
[~2020-06-09 23:58] MED LIST: CHLO25CA9 PO
[2020-06-10 00:13] VITALS: BP 126/83
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
== END 2020-06-10 01:29 | disposition home or self-care (01) ==
LOC: ER 23:58
DX: F10.229 Alcohol dependence with intoxication, unspecified (principal); F20.9 Schizophrenia, unspecified; F17.200 Nicotine dependence, unspecified, uncomplicated; Z98.890 Other specified postprocedural states
CPT/HCPCS: 99284

== ENCOUNTER 2020-06-19 17:11 | Emergency (ER) | payer OTHER | END 2020-06-19 17:37 | disposition left against medical advice (07) | LOC: ER 17:11 | DX: F19.10 Other psychoactive substance abuse, uncomplicated (principal); Z53.21 Procedure and treatment not carried out due to patient leaving prior to being seen by health care provider ==

== ENCOUNTER 2020-07-05 18:30 | Emergency (ER) | payer OTHER ==
[~2020-07-05] VITALS: Ht 175.3 cm; Wt 65.0 kg
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
--- NOTE | 2020-07-05 20:47 | RAD ---
EXAM: CT Head without IV contrast INDICATION: Reason: fell, intoxicated, head injury / Spl. Instructions: / History: TECHNIQUE: Multi-detector row CT images were obtained of the head without the use of IV contrast. All CT scans performed at this facility utilize dose optimization techniques as appropriate to the exam, including the following: Automated exposure control and adjustment of the mA and/or KV according to patient size (this includes techniques or standardized protocols for targeted exams where dose is ind ication/reason for exam). COMPARISON: 02/20/[address] FINDINGS: BRAIN PARENCHYMA: No evidence of acute intraparenchymal hemorrhage or infarct. No abnormal parenchyma l density or mass. VENTRICLES & EXTRA-AXIAL SPACES: Ventricles are within normal limits. Basilar cisterns are patent. N o pathologic extra-axial fluid collection or mass. ORBITS: Orbital contents are unremarkable. SINUSES: Visualized paranasal sinuses and mastoid air cells are clear. OSSEOUS & SOFT TISSUES: Calvarium and skull base are intact. Right frontal scalp lipoma incidentally noted. IMPRESSION: No acute intracranial pathology. EXAM: CT Maxillofacial with IV contrast INDICATION: Reason: fell, intoxicated, head injury / Spl. Instructions: / History: TECHNIQUE: Multi-detector row CT images were obtained through the maxillofacial region with the use of IV contrast. Post-processing reconstructed images were obtained for interpretation. All CT scans p erformed at this facility utilize dose optimization techniques as appropriate to the exam, including the following: Automated exposure control and adjustment of the mA and/or KV according to patient siz e (this includes techniques or standardized protocols for targeted exams where dose is indication/alexis son for exam). IV CONTRAST: Administered COMPARISON: None FINDINGS: OSSEOUS: No evidence of fracture or bone destruction. VISUALIZED INTRACRANIAL STRUCTURES: Unremarkable. ORBITS: Orbital contents are unremarkable.. SINUSES: Visualized paranasal sinuses and mastoid air cells are clear. SOFT TISSUES: Unremarkable. IMPRESSION: Unremarkable CT maxillofacial with contrast. PROCEDURE: XR KNEE _3 VIEWS_LT STUDY DATE: 07/05/2020 CLINICAL INDICATION / HISTORY: Reason: fell, intoxicated, head injury / Spl. Instructions: / History : . TECHNIQUE: AP, lateral, and tunnel views of the left knee. COMPARISON: None FINDINGS: The osseous structures are intact. The articular surfaces are smooth. The joint space is maintained. No intra-articular loose bodies. The alignment is within normal limits. The soft tiss ues are unremarkable. No obvious joint effusion. No radio-opaque foreign bodies are identified. IMPRESSION: No fracture or dislocation is identified. Electronically signed by: Kris Abdul MD (07/05/2020 8:43 PM) [facility] [place]
[2020-07-05 21:49] VITALS: BP 135/77
== END 2020-07-05 21:50 | disposition home or self-care (01) ==
LOC: ER 18:30
DX: S00.83XA Contusion of other part of head, initial encounter (principal); S80.02XA Contusion of left knee, initial encounter; F20.9 Schizophrenia, unspecified; F17.200 Nicotine dependence, unspecified, uncomplicated; F10.20 Alcohol dependence, uncomplicated; Y90.9 Presence of alcohol in blood, level not specified; W18.39XA Other fall on same level, initial encounter; Y93.89 Activity, other specified; Y92.89 Other specified places as the place of occurrence of the external cause; Y99.8 Other external cause status
CPT/HCPCS: 70450; 70486; 72125; 73562; 99285-25

== ENCOUNTER 2020-07-07 19:56 | Emergency (ER) | payer OTHER ==
[~2020-07-07] VITALS: Ht 175.3 cm; Wt 77.3 kg
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
--- NOTE | 2020-07-07 20:34 | RAD ---
INDICATION: Reason: CHEST PAIN / Spl. Instructions: / History: COMPARISON: May 28, 2020 FINDINGS: 2 view of chest obtained. Blunting of the right costophrenic angle is again seen. Poststernotomy changes. Old posttraumatic aust[place] nges to the left distal clavicle with increase in callus formation compared to prior at fracture site . Degenerative changes the spine with osteophyte formation. IMPRESSION: * Blunting of the right costophrenic angle. This could be seen with a small pleural effusion. * Increasing callus formation at left distal clavicle fracture. * There are couple of left upper rib fractures which appear mildly displaced. Electronically signed by: Melo Tamez MD (07/07/2020 8:31 PM) [id number]
[2020-07-07] MEDS ORDERED: IBUP-1007 PO (22:47)
[2020-07-07] MEDS ORDERED: AZIT250T6 PO (22:47)
[2020-07-07 23:00] VITALS: BP 111/70
[2020-07-07] MEDS ORDERED: AZITHROMYCIN 250 MG TABLET. PO ONE (23:00)
--- NOTE | 2020-07-09 03:51 | EKG ---
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
--- NOTE | 2020-07-22 08:50 | EKG ---
[facility] [address] [place] [address] Test Date: 2020-07-05 Test Time: 18:34:47 Pat Name: CHARLIE MCCOLLUM Department: Room: Gender: M Barrel Tester: : 1980 Requested By: JESSE CARLSON Order Number: [id number] Reading MD: Saw Sheikh Measurements Intervals [place] Rate: 100 P: 40 VT: 154 QRS: 62 QRSD: 90 T: 68 QT: 342 QTc: 444 Interpretive Statements SINUS RHYTHM LEFT ATRIAL ABNORMALITY ABNORMAL ECG RI6.02 No previous ECG available for comparison Electronically Signed On 07-15-2020 14:41:55 APPLIANCE SERVICE REPRESENTATIVE by Saw NELSON
== END 2020-07-07 23:00 | disposition home or self-care (01) ==
LOC: ER 19:56
DX: S22.42XA Multiple fractures of ribs, left side, initial encounter for closed fracture (principal); J90 Pleural effusion, not elsewhere classified; R07.89 Other chest pain; F10.10 Alcohol abuse, uncomplicated; F20.9 Schizophrenia, unspecified; F17.200 Nicotine dependence, unspecified, uncomplicated; Z98.890 Other specified postprocedural states; X58.XXXA Exposure to other specified factors, initial encounter; Y93.89 Activity, other specified; Y92.89 Other specified places as the place of occurrence of the external cause; Y99.8 Other external cause status
CPT/HCPCS: 71046; 93005; 99283

== ENCOUNTER 2020-07-09 19:46 | Emergency (ER) | payer OTHER ==
[~2020-07-09] VITALS: Ht 172.7 cm; Wt 64.0 kg
[~2020-07-09 19:46] MED LIST changes: +AZIT250T6 PO; +IBUP-1007 PO
[2020-07-09] MEDS ORDERED: IV NORMAL SALINE 1000ML BAG 1,000 ML IV ONE (20:15)
[2020-07-09 20:59] LABS: BASO % 1 % (0-3); EOS # 0.1 x10^3/uL (0.0-0.7); EOS % 1 % (0-3); HEMATOCRIT 39.1 % (39.0-53.0); HEMOGLOBIN 13.5 g/dL (13.0-17.5); LYMPH % 40 % (24-48); MEAN CORPUSCULAR HEMOGLOBIN 32 pg (25-35); MEAN CORPUSCULAR HGB CONC 35 g/dL (31-37); MEAN CORPUSCULAR VOLUME 92 fL (79-100); MONO # 0.3 x10^3/uL (0.0-1.1); MONO % 6 % (0-9); NEUT # 2.6 x10^3/uL (1.8-7.7); NEUT % 52 % (31-73); PLATELET COUNT 381 x10^3/uL (140-400); RED BLOOD COUNT 4.25 x10^6/uL (4.30-5.70); RED CELL DISTRIBUTION WIDTH 15.3 % (11.5-14.5); WHITE BLOOD COUNT 5.1 x10^3/uL (4.0-11.0)
[2020-07-09 21:13] LABS: CALCIUM 8.7 mg/dL (8.5-10.1); CREATININE 0.5 mg/dL (0.7-1.3); GFR 221.7; POTASSIUM 3.7 mmol/L (3.5-5.1)
[2020-07-09 21:19] LABS: ALBUMIN 3.6 g/dL (3.4-5.0); ALBUMIN/GLOBULIN RATIO 0.8 (1.0-1.7); TOTAL BILIRUBIN 0.2 mg/dL (0.2-1.0); TOTAL PROTEIN 8.1 g/dL (6.4-8.2)
--- NOTE | 2020-07-09 22:44 | RAD ---
INDICATION: Reason: FACIAL CONTUSIONS, ETOH / Spl. Instructions: / History: COMPARISON: July 05, 2020 TECHNIQUE: Axial CT images obtained through the head without intravenous contrast. One or more of the following individualized dose reduction techniques were utilized for this examinat ion: 1. Automated exposure control; 2. Adjustment of the mA and/or kV according to patient size; 3 . Use of iterative reconstruction technique. FINDINGS: No intracranial hemorrhage. No midline shift. Basal cisterns patent. Ventricles and sulci are unremarkable. No acute osseous abnormality. Orbits and paranasal sinuses unremarkable. IMPRESSION: * No acute intracranial hemorrhage. * Subcutaneous soft tissue swelling at the right supraorbital region. * Repeat demonstration of suspected scalp lipoma. Electronically signed by: Melo Tamez MD (07/09/2020 10:41 PM) [id number]
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
[2020-07-10] MEDS ORDERED: CHLO25CA9 PO (04:11)
[2020-07-10 04:30] VITALS: BP 104/62
== END 2020-07-10 04:51 | disposition short-term general hospital (02) ==
LOC: ER 19:46
DX: F10.229 Alcohol dependence with intoxication, unspecified (principal); Z20.822 Contact with and (suspected) exposure to COVID-19; R60.0 Localized edema; R15.9 Full incontinence of feces; F20.9 Schizophrenia, unspecified; F17.200 Nicotine dependence, unspecified, uncomplicated; Z98.890 Other specified postprocedural states
CPT/HCPCS: 36415; 70450; 80053; 85025; 87426; 96360; 96361; 99285; C9803; G0480; J7030; U0003

== ENCOUNTER 2020-08-26 15:31 | Emergency (ER) | payer OTHER ==
[~2020-08-26] VITALS: Ht 177.8 cm; Wt 72.7 kg
[2020-08-26] MEDS ORDERED: IV NORMAL SALINE 1000ML BAG 1,000 ML IV ONE ×3 (16:00→17:15)
[2020-08-26 16:15] LABS: BASO % 1 % (0-3); EOS % 1 % (0-3); HEMATOCRIT 38.8 % (39.0-53.0); HEMOGLOBIN 13.2 g/dL (13.0-17.5); LYMPH # 1.3 x10^3/uL (1.0-4.8); LYMPH % 31 % (24-48); MEAN CORPUSCULAR HEMOGLOBIN 32 pg (25-35); MEAN CORPUSCULAR HGB CONC 34 g/dL (31-37); MEAN CORPUSCULAR VOLUME 94 fL (79-100); MONO # 0.2 x10^3/uL (0.0-1.1); MONO % 6 % (0-9); NEUT # 2.6 x10^3/uL (1.8-7.7); NEUT % 62 % (31-73); PLATELET COUNT 312 x10^3/uL (140-400); RED BLOOD COUNT 4.14 x10^6/uL (4.30-5.70); RED CELL DISTRIBUTION WIDTH 15.1 % (11.5-14.5); WHITE BLOOD COUNT 4.2 x10^3/uL (4.0-11.0)
[2020-08-26 16:40] LABS: CALCIUM 8.2 mg/dL (8.5-10.1); CREATININE 0.4 mg/dL (0.7-1.3); GFR 286.8; POTASSIUM 3.6 mmol/L (3.5-5.1)
--- NOTE | 2020-08-26 16:44 | RAD ---
EXAMINATION: CT HEAD AND C-SPINE WO CLINICAL HISTORY: INTOXICATED, FOUND DOWN ON GROUND TECHNIQUE: Serial axial images without IV contrast were obtained from the vertex to the foramen magnum. CT of the cervical spine without IV contrast. Spiral, high resolution axial images were obtained from the skull base to the cervicothoracic junction with sagittal and coronal planar reconstructions. CT Dose Reduction Employed: One or more of the following individualized dose reduction techniques wer e utilized for this examination: 1. Automated exposure control 2. Adjustment of the mA and/or kV ac cording to patient size 3. Use of iterative reconstruction technique. COMPARISON: 07/05/2020 FINDINGS: BRAIN: Acute Change: No evidence of an acute contusion or other acute parenchymal process. Hemorrhage: No evidence of acute intracranial hemorrhage. Mass Lesion/Mass Effect: No evidence of intracranial mass or extraaxial fluid collection. No signific ant mass effect. Chronic Change: None apparent. Parenchyma: No significant volume loss. Parenchyma otherwise within normal limits for age. Ventricles: Ventricles within normal limits for age. Paranasal Sinuses and Skull Base: Visualized paranasal sinuses clear. No evidence of acute calvarial fracture. Small subcutaneous lipoma along the anterior inferior right frontal scalp, similar to prior study. C-SPINE: Alignment: Normal anatomic alignment. Osseous Structures: No evidence of acute fracture or spondylolisthesis. No evidence of destructive os seous lesion. Degenerative Changes: Minimal degenerative disc disease. Mild facet arthropathy and neural foraminal narrowing, greatest in the upper cervical spine. Cervical Soft Tissues: No prevertebral soft tissue swelling. IMPRESSION: BRAIN: No evidence of acute intracranial abnormality or significant interval change. C-SPINE: No evidence of acute osseous abnormality involving the cervical spine or significant interval change. Electronically signed by: Casimiro Bahena DO (08/26/2020 4:41 PM) [id number]
[2020-08-26 16:46] LABS: ALBUMIN 3.6 g/dL (3.4-5.0); ALBUMIN/GLOBULIN RATIO 0.8 (1.0-1.7); MAGNESIUM 2.4 mg/dL (1.8-2.4); TOTAL BILIRUBIN 0.2 mg/dL (0.2-1.0)
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
[2020-08-26] MEDS ORDERED: PRENATAL MULTIVITAMIN TABLET. PO ONE (18:15)
[2020-08-26] MEDS ORDERED: THIAMINE INJ 100 MG in IV DEXTROSE 5% 50 ML IV SCH (18:30)
[2020-08-26 19:42] LABS: BILIRUBIN,URINE NEGATIVE (NEG); CLARITY,URINE CLEAR; COLOR,URINE YELLOW; NITRITE,URINE NEGATIVE (NEG); PROTEIN,URINE NEGATIVE (NEG-TRACE); UROBILINOGEN,URINE 0.2 mg/dL (0.2 mg/dL)
[2020-08-26 19:49] LABS: BARBITURATES NEG (NEG); BENZODIAZEPINES NEG (NEG); CANNABINOIDS NEG (NEG); COCAINE NEG (NEG); METHADONE NEG (NEG); OPIATES NEG (NEG); PHENCYCLIDINE POS (NEG)
[2020-08-26 19:53] LABS: AMPHETAMINE/METHAMPHETAMINE NEG (NEG)
[2020-08-26 19:56] LABS: RBC,URINE 0 /HPF (0-2); WBC,URINE RARE /HPF (0-4)
[2020-08-26 19:57] LABS: BACTERIA,URINE 0 /HPF (0-FEW)
[2020-08-26] MEDS ORDERED: LORazepam 0.5 MG TABLET PO ONE (21:30)
[2020-08-26] MEDS ORDERED: CHLO25CA9 PO (21:32)
[2020-08-26 21:42] VITALS: BP 164/99
== END 2020-08-26 22:15 | disposition home or self-care (01) ==
LOC: ER 15:31
DX: F10.229 Alcohol dependence with intoxication, unspecified (principal); F20.9 Schizophrenia, unspecified; F17.200 Nicotine dependence, unspecified, uncomplicated; Z98.890 Other specified postprocedural states
CPT/HCPCS: 36415; 70450; 72125; 80053; 80307; 81001; 83735; 85025; 96361; 96365; 99285; G0480; J3411; J7030; J7060

== ENCOUNTER 2021-07-06 08:26 | Emergency (ER) | payer OTHER ==
[~2021-07-06] VITALS: Ht 170.2 cm; Wt 63.0 kg
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
--- NOTE | 2021-07-06 08:59 | RAD ---
EXAMINATION: Chest radiograph. VIEWS: 1 COMPARISON: 07/07/2020 INDICATION:41 years, Male, chest pain. FINDINGS: Normal cardiomediastinal silhouette. No focal consolidation. Similar blunting of the right costophren ic angle, may be secondary to chronic scarring. No pleural effusion or pneumothorax. No acute osseous process. IMPRESSION: No acute cardiopulmonary process. Electronically signed by: Carine Cavazos MD (07/06/2021 8:56 AM) [id number]
[2021-07-06 09:12] LABS: BASO % 1 % (0-3); EOS % 1 % (0-3); HEMATOCRIT 47.4 % (39.0-53.0); HEMOGLOBIN 15.6 g/dL (13.0-17.5); LYMPH # 0.6 x10^3/uL (1.0-4.8); LYMPH % 21 % (24-48); MEAN CORPUSCULAR HEMOGLOBIN 31 pg (25-35); MEAN CORPUSCULAR HGB CONC 33 g/dL (31-37); MEAN CORPUSCULAR VOLUME 95 fL (79-100); MONO # 0.2 x10^3/uL (0.0-1.1); MONO % 8 % (0-9); NEUT # 2.1 x10^3/uL (1.8-7.7); NEUT % 69 % (31-73); PLATELET COUNT 298 x10^3/uL (140-400); RED BLOOD COUNT 4.98 x10^6/uL (4.30-5.70); RED CELL DISTRIBUTION WIDTH 15.6 % (11.5-14.5)
[2021-07-06 09:25] LABS: CALCIUM 8.4 mg/dL (8.5-10.1); CREATININE 0.5 mg/dL (0.7-1.3); GFR 220.6; POTASSIUM 4.1 mmol/L (3.5-5.1)
[2021-07-06 09:30] LABS: ALBUMIN 3.5 g/dL (3.4-5.0); ALBUMIN/GLOBULIN RATIO 0.8 (1.0-1.7); MAGNESIUM 2.2 mg/dL (1.8-2.4); TOTAL BILIRUBIN 0.1 mg/dL (0.2-1.0); TOTAL PROTEIN 8.1 g/dL (6.4-8.2)
[2021-07-06 09:41] VITALS: BP 147/87
[2021-07-06] MEDS: IV NORMAL SALINE 1000ML BAG 1,000 ML IV ONE (10:08)
--- NOTE | 2021-07-06 18:21 | EKG ---
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
== END 2021-07-06 13:50 | disposition home or self-care (01) ==
LOC: ER 08:26
DX: R07.2 Precordial pain (principal); F10.129 Alcohol abuse with intoxication, unspecified; Y90.5 Blood alcohol level of 100-119 mg/100 ml; F20.0 Paranoid schizophrenia; F17.200 Nicotine dependence, unspecified, uncomplicated
CPT/HCPCS: 36415; 71045; 80053; 82550; 83735; 84484; 85025; 93005; 96360; 96361; 99285; G0480; J7030

== ENCOUNTER 2021-09-04 23:54 | Emergency (ER) | payer OTHER ==
[~2021-09-04] VITALS: Ht 172.7 cm; Wt 68.0 kg
--- NOTE | 2021-09-05 01:01 | RAD ---
EXAMINATION: CT HEAD AND C-SPINE WO CLINICAL HISTORY: Right forehead trauma, EtOH intoxication. Head and neck pain. TECHNIQUE: Serial axial images without IV contrast were obtained from the vertex to the foramen magnum. CT of the cervical spine without IV contrast. Spiral, high resolution axial images were obtained from the skull base to the cervicothoracic junction with sagittal and coronal planar reconstructions. CT Dose Reduction Employed: One or more of the following individualized dose reduction techniques wer e utilized for this examination: 1. Automated exposure control 2. Adjustment of the mA and/or kV ac cording to patient size 3. Use of iterative reconstruction technique. COMPARISON: 08/26/2020 FINDINGS: BRAIN: Acute Change: No evidence of an acute contusion or other acute parenchymal process. Hemorrhage: No evidence of acute intracranial hemorrhage. Mass Lesion/Mass Effect: No evidence of intracranial mass or extraaxial fluid collection. No signific ant mass effect. Parenchyma: Parenchyma within normal limits for age. Ventricles: Ventricles within normal limits for age. Paranasal Sinuses and Skull Base: Visualized paranasal sinuses clear. No evidence of acute calvarial fracture. Small subcutaneous lipoma along the anterior inferior right frontal scalp, similar to prior study. C-SPINE: Alignment: Normal anatomic alignment. Osseous Structures: No evidence of acute fracture or spondylolisthesis. Degenerative Changes: Minimal degenerative disc disease. Facet arthropathy and neural foraminal narro wing, greatest in the upper cervical spine. Cervical Soft Tissues: No prevertebral soft tissue swelling. IMPRESSION: BRAIN: No evidence of acute intracranial abnormality. C-SPINE: No evidence of acute osseous abnormality involving the cervical spine. Electronically signed by: Casimiro Bahena DO (09/05/2021 12:59 AM) DYLLAN
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
[2021-09-05 05:00] VITALS: BP 98/59
== END 2021-09-05 05:50 | disposition home or self-care (01) ==
LOC: ER 23:54
DX: F10.229 Alcohol dependence with intoxication, unspecified (principal); Y90.8 Blood alcohol level of 240 mg/100 ml or more; R51.9 Headache, unspecified; M54.2 Cervicalgia; F20.9 Schizophrenia, unspecified; F17.200 Nicotine dependence, unspecified, uncomplicated
CPT/HCPCS: 36415; 70450; 72125; 99285; G0480